=== PATIENT | male | born 1995 | race Caucasian/White ===

== ENCOUNTER 2017-05-30 08:55 | Emergency (ER) | payer BC, OTHER ==
[2017-05-30 09:04] VITALS: BP 159/89; BMI 34.7
--- NOTE | 2017-05-30 09:21 | DR.GENAD ---
HPI - PCP Primary Care Physician: JEEVAN LARSON - Complaint/Symptoms Chief Complaint Doctors Comments: Patient was hit on the nose by a trailer handle this morning. There was no LOC, bleeding from nostrils. Chief Complaint:: PATIENT STATED THAT HE WAS WORKING AND A HOPPER BOTTOM HANDLE HIT HIM IN THE NOSE. PATIENT DENIES ANY BLEEDING. HE STATED THIS HAPPEN ABOUT 1 HOUR AGO. SMALL SCRATCH NOTED A THE BRIDGE OF PATIENT NOSE. - Source History Provided: Patient - Mode of Arrival Mode of Arrival: Ambulatory - Timing Onset of Chief Complaint: 05/30/17 PMH - PMH Past Medical History: No Past Surgical History: Yes Surgical History: Ortho Surgery, Tonsillectomy - Family History History of Family Medical Conditions: Yes Family Medical History: Diabetes Mellitus, Cancer, Coronary Artery Disease, Hypertension - Social History Does patient currently use any type of tobacco product: No Have you used tobacco products in the last 12 months: No Type of Tobacco Use: None Does any household member use tobacco: No Alcohol Use: None Do you use any recreational Drugs:: No Lives With: Family Lives Where: Home - infectious screening In the last 2 months have you had wt loss of >10#?: NO Have you had fever, night sweats or hemotysis?: No Have you traveled outside the country in the last 6 months?: No Isolation: Standard ROS - Review of Systems Eyes: No Symptoms Reported ENTM: No Symptoms Reported Respiratoy: No Symptoms Reported Cardiovascular: No Symptoms Reported Gastrointestinal/Abdominal: No Symptoms Reported Genitourinary: No Symptoms Reported Neurological: No Symptoms Reported Musculoskeletal: No Symptoms Reported, Other (nasal bridge bruise) Integumentary: No Symptoms Reported, Bruises (nasal bridge) Endocrine: No Symptoms Reported Psychiatric: No Symptoms Reported All Other Systems: Reviewed and Negative PE - Vital Signs Vitals: Temperature 97.7 F Pulse Rate 92 Respiratory Rate 18 Blood Pressure 159/89 O2 Sat by Pulse Oximetry 97 - General General Appearance: Alert - Head Head Exam: Normal Inspection - Eyes Eye exam: Normal Appearance, PERRL, EOMI - ENT ENT Exam: Normal Exam External Ear Exam: Normal External Inspection TM/Canal Exam: Bilateral Normal Nose Exam: Normal Nose Exam Mouth Exam: Normal Inspection Throat Exam: Normal Inspection - Neck Neck Exam: Normal Inspection - Chest Chest Inspection: Normal Inspection - Respiratory Respiratory Exam: Normal Lung Sounds Bilat Respiratory Exam: Bilateral Clear to Auscultation - Cardiovascular Cardiovascular Exam: Regular Rate, Normal Rhythm - Abdominal Exam Abdominal Exam: Normal Inspection, Normal Bowel Sounds Abdominal Tenderness: negative: RUQ, RLQ, LUQ, LLQ, Epigastrium, Suprapubic, Diffuse, Mild, Moderate, Severe, Other - Extremities Extremities Exam: Normal Inspection, Full ROM - Back Back Exam: Normal Inspection, Full ROM - Neurologic Neurological Exam: Alert, Oriented X3, CN II-XII Intact - Psychiatric Psychiatric Exam: Normal Affect - Skin Skin Exam: Warm, Dry, Intact ROR - XRAY XRAY Interpreted by: Radiologist (Nasal Bone: Suspect nondisplaced anterior nasal fracture. However, this injury may not be acute. Correlate clinically) - Diagnosis Discharge Problem: Nondisplaced nasal bridge fx - Discharge Plan Condition: Stable - Follow ups/Referrals Follow ups/Referrals: JEEVAN LARSON [Primary Care Provider] - 3 days - Instructions
--- NOTE | 2017-05-30 09:55 | RAD ---
Examination: Nasal bones, four views History: Trauma Findings: There is a faint linear lucent defect involving the anterior 3rd of the nasal complex. No d epression or lateral deviation is noted. The nasal septum appears midline. The anterior nasal spine o f the maxilla is not included on the available lateral views. Impression: Suspect nondisplaced anterior nasal fracture. However, this injury may not be acute. Vernon valdez clinically. Reported By:
== END 2017-05-30 10:14 | disposition hospice, inpatient (51) ==
LOC: ER 09:01
DX: S02.2XXA Fracture of nasal bones, initial encounter for closed fracture (principal); X58.XXXA Exposure to other specified factors, initial encounter; Y92.9 Unspecified place or not applicable
CPT/HCPCS: 70160; 99282